=== PATIENT | male | born 1995 | race Caucasian/White ===

== ENCOUNTER → 2019-05-15 | Outpatient (REF) | payer OTHER ==
[2019-05-15 12:36] LABS: SEMEN VISCOSITY LIQUID (LIQUID); SEMEN VOLUME 3.8 ml (2.0-5.0)
[2019-05-15 12:37] LABS: WBC CONCENTRATION >1 M/ml (<=1 M/ml)
== END ==
LOC: M LAB REF 10:40
PROVIDERS: ATTEND Nurse Practitioner Women's Health
DX: N46.9 Male infertility, unspecified (principal)

== ENCOUNTER → 2021-01-29 | Outpatient (CLI) | payer OTHER ==
[2021-01-29 13:46] LABS: PLATELET COUNT, AUTOMATED 152 10^3/uL (150-450)
[2021-01-29 13:59] LABS: INR 0.96; PROTHROMBIN TIME 12.9 SECONDS (12.5-14.3)
[2021-01-29 14:00] LABS: COLLAGEN EPINEPHRINE 134 SECONDS (74-162); PARTIAL THROMBOPLASTIN TIME 30.2 SECONDS (24.2-38.5)
== END ==
LOC: M LAB 12:57
PROVIDERS: ATTEND Physical Medicine & Rehabilitation
DX: M51.26 Other intervertebral disc displacement, lumbar region (principal)